=== PATIENT | male | born 1970 | race Caucasian/White ===

== ENCOUNTER 2017-11-25 20:47 | Emergency (ER) | payer MEDICARE, OTHER ==
[~2017-11-25] VITALS: Ht 167.6 cm; Wt 78.0 kg
[2017-11-25] MEDS ORDERED: SITA50 PO (21:01)
[2017-11-25] MEDS ORDERED: SERT50TA12 PO (21:01)
[2017-11-25] MEDS ORDERED: METF500T4 PO (21:01)
[2017-11-25] MEDS ORDERED: GLIP5 PO (21:01)
[2017-11-25 21:08] LABS: GLUCOSE,POINT OF CARE 282 MG/DL (70-110)
[2017-11-25 22:34] VITALS: BP 144/79
== END 2017-11-25 22:51 | disposition home or self-care (01) ==
LOC: EMS 20:50
DX: S00.81XA Abrasion of other part of head, initial encounter (principal); E11.9 Type 2 diabetes mellitus without complications; I10 Essential (primary) hypertension; F31.9 Bipolar disorder, unspecified; Y04.0XXA Assault by unarmed brawl or fight, initial encounter; Z79.84 Long term (current) use of oral hypoglycemic drugs
CPT/HCPCS: 82962; 99283

== ENCOUNTER 2022-09-16 16:25 | Emergency (ER) | payer MEDICARE, OTHER ==
[~2022-09-16] VITALS: Ht 170.2 cm; Wt 76.8 kg
[~2022-09-16 16:25] MED LIST: GLIP5TAB12 PO; METF-1211 PO; SERT-158 PO; SITA50 PO
[2022-09-16] MEDS ORDERED: LISI40TA9 PO (16:36)
[2022-09-16] MEDS ORDERED: AMLO10TA55 PO (16:36)
[2022-09-16] MEDS ORDERED: ASPI-1444 PO (16:36)
[2022-09-16] MEDS ORDERED: ATOR-2 PO (16:36)
[2022-09-16] MEDS ORDERED: LIDOCAINE 1% 10 ML VIAL ID ONE (17:15)
[2022-09-16 17:30] VITALS: BP 145/85
[2022-09-16] MEDS ORDERED: CEPH-558 PO (17:32)
== END 2022-09-16 17:30 | disposition home or self-care (01) ==
LOC: EMS 16:25
DX: L02.811 Cutaneous abscess of head [any part, except face] (principal); F31.9 Bipolar disorder, unspecified; E11.9 Type 2 diabetes mellitus without complications; I10 Essential (primary) hypertension; F90.9 Attention-deficit hyperactivity disorder, unspecified type
CPT/HCPCS: 99283; 10060; 82962; J3490